=== PATIENT | male | born 1990 | race African-American/Black ===

== ENCOUNTER 2020-06-28 15:28 | Emergency (ER) | payer MEDICAID ==
[~2020-06-28] VITALS: Ht 175.3 cm; Wt 65.9 kg
[2020-06-28] MEDS ORDERED: TETanus/Pertussis (Acell)/Diphther VAC/PF (Tdap-Adult) 0.5ml syringe IMVAC ONE (15:45)
[2020-06-28] MEDS ORDERED: LIDOcaine 1% W/epiNEPHrine 1:200,000 10ml vial IJ ONE (15:45)
[2020-06-28] MEDS ORDERED: LIDOcaine Viscous 15ml cup MM ONE (17:20)
--- NOTE | 2020-06-28 19:08 | NUR ---
REPORT CALLED TO [facility] ER, MARICARMEN CORBETT RECEIVING REPORT. PT WITH STABLE VS NOW AND CONTINUES TO HAVE MILD PAIN TO HIS FACE. PT IS COOPERATIVE AND PLEASANT. [facility] ASSUMING RESPONSIBILITY OF TRANSPORTING PT FOR THE ER TO ER TRANSFER TO [facility]. RECEIVING RN IS AWARE THAT PT IS COMMINIG WITH [facility]. DR. SANCHEZ IS AWARE THAT PT TO BE TRANSFERRED VIEW OFFICERS/POV TO [facility] AND IS AGREEABLE TO THIS PLAN.
[2020-06-28 19:10] VITALS: BP 129/87
== END 2020-06-28 19:13 | disposition short-term general hospital (02) ==
LOC: ER 15:29
DX: S02.40CA Maxillary fracture, right side, initial encounter for closed fracture (principal); S03.2XXA Dislocation of tooth, initial encounter; S01.21XA Laceration without foreign body of nose, initial encounter; R51.9 Headache, unspecified; F17.290 Nicotine dependence, other tobacco product, uncomplicated; Z20.3 Contact with and (suspected) exposure to rabies; X58.XXXA Exposure to other specified factors, initial encounter; Y93.89 Activity, other specified; Y92.89 Other specified places as the place of occurrence of the external cause; Y99.8 Other external cause status
CPT/HCPCS: 12011; 70450; 70486; 71045; 90471; 90715; 99285